=== PATIENT | female | born 1990 | race Caucasian/White ===

== ENCOUNTER 2016-11-04 13:00 | Emergency (ER) | payer OTHER ==
[~2016-11-04] VITALS: Ht 162.6 cm; Wt 89.1 kg
[2016-11-04 13:29] VITALS: BP 137/68
== END 2016-11-04 15:22 | disposition home or self-care (01) ==
LOC: M ED 13:00
DX: F43.0 Acute stress reaction (principal); R45.851 Suicidal ideations

== ENCOUNTER → 2018-03-18 | Outpatient (REF) | payer OTHER ==
[2018-03-18 13:32] LABS: HEMATOCRIT 40.2 % (36.0-47.0); HEMOGLOBIN 13.1 g/dl (12.0-15.5); MEAN CORPUSCULAR HEMOGLOBIN 29.4 pg (27.0-33.0); MEAN CORPUSCULAR HGB CONC 32.6 g/dl (32.0-36.5); MEAN CORPUSCULAR VOLUME 90.3 fl (80.0-96.0); PLATELET COUNT, AUTOMATED 334 10^3/uL (150-450); RED BLOOD COUNT 4.45 10^6/uL (4.00-5.40); RED CELL DISTRIBUTION WIDTH 13.1 % (11.5-14.5); WHITE BLOOD COUNT 12.2 10^3/uL (4.0-10.0)
[2018-03-18 13:45] LABS: ALBUMIN 3.6 GM/DL (3.2-5.2); ALBUMIN/GLOBULIN RATIO 0.97 (1.00-1.93); ALKALINE PHOSPHATASE 78 U/L (45-117); ALT/SGPT 30 U/L (12-78); ANION GAP 7 MEQ/L (8-16); AST/SGOT 17 U/L (7-37); BILIRUBIN,TOTAL 0.2 MG/DL (0.2-1.0); BLOOD UREA NITROGEN 14 MG/DL (7-18); CALCIUM LEVEL 8.2 MG/DL (8.5-10.1); CARBON DIOXIDE LEVEL 26 MEQ/L (21-32); CHLORIDE LEVEL 106 MEQ/L (98-107); CHOLESTEROL LEVEL 239 MG/DL (<200); CHOLESTEROL RISK RATIO 5.195 (<5); CREATININE FOR GFR 0.85 MG/DL (0.55-1.30); FREE T4 1.13 NG/DL (0.76-1.46); GLOMERULAR FILTRATION RATE > 60.0 (>60); GLUCOSE, FASTING 91 MG/DL (70-100); HDL CHOLESTEROL 46 MG/DL (>40); LDL CHOLESTEROL 169 MG/DL (<100); NON-HDL-C 193 MG/DL; POTASSIUM SERUM 3.9 MEQ/L (3.5-5.1); SODIUM LEVEL 139 MEQ/L (136-145); TOTAL PROTEIN 7.3 GM/DL (6.4-8.2); TRIGLYCERIDES LEVEL 121 MG/DL (<150)
[2018-03-18 13:57] LABS: RUBELLA IgG QUALITATIVE IMMUNE (IMMUNE)
[2018-03-19 10:12] LABS: RUBEOLA IgG ANTIBODY 45.2 AU/mL (Immune >29.9)
[2018-03-19 11:09] LABS: HEPATITIS C VIRUS ABY INDEX 0.1 INDEX (<0.8); HIV 1&2 SCREEN CENTAUR NEGATIVE (NEGATIVE)
== END ==
LOC: M SFHCPLAZ 10:33
DX: Z01.84 Encounter for antibody response examination (principal); F32.9 Major depressive disorder, single episode, unspecified; Z13.220 Encounter for screening for lipoid disorders; F41.9 Anxiety disorder, unspecified; Z11.59 Encounter for screening for other viral diseases; Z11.4 Encounter for screening for human immunodeficiency virus [HIV]
CPT/HCPCS: 84443

== ENCOUNTER 2021-06-13 12:09 | Emergency (ER) | payer OTHER, SELFPAY ==
[~2021-06-13] VITALS: Ht 162.6 cm; Wt 93.2 kg
[2021-06-13] MEDS ORDERED: KETOROLAC 60MG 2ML VIAL IM ONE (14:10)
[2021-06-13 15:03] VITALS: BP 131/77
== END 2021-06-13 15:09 | disposition home or self-care (01) ==
LOC: M ED 12:09
DX: M54.50 Low back pain, unspecified (principal); F17.210 Nicotine dependence, cigarettes, uncomplicated; F12.20 Cannabis dependence, uncomplicated
CPT/HCPCS: 72110; 96372; 99283; J1885

== ENCOUNTER 2022-01-24 20:32 | Emergency (ER) | payer OTHER ==
[~2022-01-24] VITALS: Ht 162.6 cm; Wt 97.3 kg
[2022-01-24 20:32] VITALS: BP 145/74
== END 2022-01-24 22:46 | disposition left against medical advice (07) ==
LOC: M ED 20:32
DX: Z53.21 Procedure and treatment not carried out due to patient leaving prior to being seen by health care provider (principal)

== ENCOUNTER 2022-01-25 19:13 | Inpatient (IN) | payer MEDICAID, OTHER, SELFPAY ==
[~2022-01-25] VITALS: Ht 162.6 cm; Wt 98.0 kg
[2022-01-25 20:53] LABS: BASO # 0.1 10^3/uL (0.0-0.2); BASO % 0.4 % (0.0-1.0); EOS # 0.2 10^3/uL (0.0-0.5); EOS % 1.9 % (0.0-3.0); HEMATOCRIT 42.2 % (36.0-47.0); HEMOGLOBIN 13.6 g/dl (12.0-15.5); LYMPH # 4.4 10^3/uL (1.5-5.0); MEAN CORPUSCULAR HEMOGLOBIN 29.5 pg (27.0-33.0); MEAN CORPUSCULAR HGB CONC 32.2 g/dl (32.0-36.5); MEAN CORPUSCULAR VOLUME 91.5 fl (80.0-96.0); MONO # 0.7 10^3/uL (0.0-0.8); NEUTROPHILS # 5.9 10^3/uL (1.5-8.5); NEUTROPHILS % 52.3 % (36.0-66.0); PLATELET COUNT, AUTOMATED 322 10^3/uL (150-450); RED BLOOD COUNT 4.61 10^6/uL (4.00-5.40); WHITE BLOOD COUNT 11.3 10^3/uL (4.0-10.0)
[2022-01-25] MEDS ORDERED: ISOVUE-370 76% 100ML VIAL As Ordered ONE (20:55)
[2022-01-25 21:29] LABS: ERYTHROCYTE SEDIMENTATION RATE 17 mm/hr (0-20)
[2022-01-25 21:31] LABS: ALBUMIN 3.6 GM/DL (3.2-5.2); ALT/SGPT 42 U/L (12-78); BILIRUBIN,DIRECT < 0.1 MG/DL (0.0-0.2); BILIRUBIN,TOTAL 0.2 MG/DL (0.2-1.0); TOTAL PROTEIN 7.5 GM/DL (6.4-8.2)
[2022-01-25] MEDS ORDERED: GLUCAGON INJ 1MG VIAL IV STA (22:20)
[2022-01-25] MEDS ORDERED: HOME MED LIST COMPLETE! XX SCH (22:35)
[2022-01-26] MEDS ORDERED: GLUCOSE 4GM CHEW TABLET PO PRN (00:05)
[2022-01-26] MEDS ORDERED: DEXTROSE 50% 50 ML SYRINGE IV PRN (00:05)
[2022-01-26] MEDS ORDERED: GLUCAGON INJ 1MG VIAL SC PRN (00:05)
[2022-01-26] MEDS: NS 1,000 ML IV SCH ×2 (01:23→02:29)
[2022-01-26 02:04] VITALS: BP 145/80
[2022-01-26 07:50] LABS: MEAN CORPUSCULAR HEMOGLOBIN 29.5 pg (27.0-33.0); MEAN CORPUSCULAR HGB CONC 32.5 g/dl (32.0-36.5); MEAN CORPUSCULAR VOLUME 90.9 fl (80.0-96.0); PLATELET COUNT, AUTOMATED 299 10^3/uL (150-450); WHITE BLOOD COUNT 10.6 10^3/uL (4.0-10.0)
[2022-01-26 08:00] VITALS: BP 138/74
[2022-01-26 08:03] LABS: INR 0.93; PROTHROMBIN TIME 12.7 SECONDS (12.5-14.5)
[2022-01-26 08:04] LABS: PARTIAL THROMBOPLASTIN TIME 29.6 SECONDS (24.8-34.2)
[2022-01-26 08:14] LABS: BLOOD UREA NITROGEN 11 MG/DL (7-18); CALCIUM LEVEL 8.6 MG/DL (8.5-10.1); CARBON DIOXIDE LEVEL 28 MEQ/L (21-32); CHLORIDE LEVEL 104 MEQ/L (98-107); CREATININE FOR GFR 0.76 MG/DL (0.55-1.30); GLOMERULAR FILTRATION RATE > 60.0 (>60); GLUCOSE, FASTING 95 MG/DL (70-100); SODIUM LEVEL 136 MEQ/L (136-145)
[2022-01-26] MEDS ORDERED: ONDANSETRON 4MG 2ML VIAL IV PRN (08:45)
[2022-01-26] MEDS ORDERED: METOCLOPRAMIDE INJ 10MG/2ML VIAL (J2765 PER 1) IV SCH (09:00)
[2022-01-26] MEDS ORDERED: LEXA1TAB PO (11:56)
[2022-01-26] MEDS ORDERED: XANA0.5T PO (11:56)
[2022-01-26] MEDS ORDERED: REGL5TAB2 PO ×2 (11:56)
[2022-01-26] MEDS ORDERED: SUCR1SS PO (11:56)
[2022-01-26] MEDS ORDERED: SUCR1TA PO (13:21)
== END 2022-01-26 13:05 | disposition home or self-care (01) | DRG 243 ==
LOC: M ED 19:13 → M ED INP 01-26 00:04 → M PED 01-26 01:56
PROVIDERS: ADMIT Internal Medicine; ATTEND Internal Medicine
DX: K21.9 Gastro-esophageal reflux disease without esophagitis (principal); F17.210 Nicotine dependence, cigarettes, uncomplicated; Z20.822 Contact with and (suspected) exposure to COVID-19; F41.1 Generalized anxiety disorder; F41.0 Panic disorder [episodic paroxysmal anxiety]

== ENCOUNTER → 2022-03-23 | Outpatient (CLI) | payer MEDICAID, OTHER ==
[~2022-03-23] MED LIST: LEXA1TAB PO; REGL5TAB2 PO; SUCR1SS PO; SUCR1TA PO; XANA0.5T PO
== END ==
LOC: M LABSMTC 11:37
PROVIDERS: ATTEND Anesthesiology
DX: Z01.812 Encounter for preprocedural laboratory examination (principal); Z11.52 Encounter for screening for COVID-19

== ENCOUNTER 2022-03-28 07:40 | Day surgery (SDC) | payer OTHER ==
[~2022-03-28] VITALS: Ht 162.6 cm; Wt 96.1 kg
[~2022-03-28 07:40] MED LIST changes: +NS 1,000 ML IV ONE
[2022-03-28] MEDS ORDERED: LIDOCAINE 2% 100MG/5ML SDV (FOR ANES.) As Ordered ONE (07:51)
[2022-03-28] MEDS ORDERED: propofoL 200 MG/20 ML VIAL As Ordered ONE ×2 (07:51→08:29)
[2022-03-28] MEDS ORDERED: fentaNYL 100 MCG/2 ML INJECTION As Ordered ONE (08:17)
[2022-03-28 08:48] VITALS: BP 143/82
== END 2022-03-28 09:40 | disposition home or self-care (01) ==
LOC: M OPP 07:40
PROVIDERS: ATTEND Surgery
DX: B96.81 Helicobacter pylori [H. pylori] as the cause of diseases classified elsewhere (principal); K21.9 Gastro-esophageal reflux disease without esophagitis; F32.9 Major depressive disorder, single episode, unspecified; F41.9 Anxiety disorder, unspecified
CPT/HCPCS: 43239; 88305; J3010

== ENCOUNTER 2022-11-15 06:13 | Emergency (ER) | payer OTHER ==
[~2022-11-15] VITALS: Ht 162.6 cm; Wt 87.6 kg
[2022-11-15 06:13] VITALS: BP 169/81; TEMP 98; O2SAT 99
[~2022-11-15 06:13] MED LIST changes: -NS 1,000 ML IV ONE
== END 2022-11-15 08:45 | disposition home or self-care (01) ==
LOC: M ED 08:03
DX: H61.22 Impacted cerumen, left ear (principal); F41.9 Anxiety disorder, unspecified; F32.A Depression, unspecified; Z87.891 Personal history of nicotine dependence

== ENCOUNTER 2023-05-18 20:14 | Emergency (ER) | payer OTHER ==
[2023-05-19 03:08] LABS: HEMATOCRIT 41.7 % (36.0-47.0); HEMOGLOBIN 13.6 g/dl (12.0-15.5); MEAN CORPUSCULAR HEMOGLOBIN 26.9 pg (27.0-33.0); MEAN CORPUSCULAR HGB CONC 32.6 g/dl (32.0-36.5); MEAN CORPUSCULAR VOLUME 82.4 fl (80.0-96.0); PLATELET COUNT, AUTOMATED 332 10^3/uL (150-450); RED BLOOD COUNT 5.06 10^6/uL (4.00-5.40); WHITE BLOOD COUNT 11.7 10^3/uL (4.0-10.0)
[2023-05-19 03:30] LABS: BLOOD UREA NITROGEN 7 MG/DL (9-23); CALCIUM LEVEL 8.9 MG/DL (8.5-10.1); CARBON DIOXIDE LEVEL 24 MMOL/L (20-31); CHLORIDE LEVEL 102 MMOL/L (98-107); CREATININE FOR GFR 0.52 MG/DL (0.55-1.30); GLOMERULAR FILTRATION RATE > 60.0 (>60); GLUCOSE, FASTING 159 MG/DL (60-100); POTASSIUM SERUM 4.2 MMOL/L (3.5-5.1); SODIUM LEVEL 134 MMOL/L (136-145)
[2023-05-19 03:32] LABS: FREE T4 1.74 NG/DL (0.89-1.76)
[2023-05-19 03:33] LABS: THYROID STIMULATING HORMONE 0.008 uIU/ML (0.55-4.78)
[2023-05-19 03:40] LABS: HCG, SERUM QUALITATIVE NEGATIVE (NEGATIVE)
[2023-05-19] MEDS ORDERED: ISOVUE-370 76% 100ML VIAL As Ordered ONE (03:41)
[2023-05-19 04:18] LABS: ATYPICAL LYMPH 12 % (0-5); LYMPHOCYTES 35 % (16-44); MONOCYTES 6 % (0-5); NEUTROPHILS 47 % (28-66)
[2023-05-19 04:19] LABS: PLATELET ESTIMATE NORMAL (NORMAL)
[2023-05-19 05:00] VITALS: BP 144/72; TEMP 98; O2SAT 93
[2023-05-19] MEDS ORDERED: CEPH500C PO (06:13)
[2023-05-19] MEDS: CEPHALEXIN 500 MG CAP PO ONE (06:26)
== END 2023-05-19 06:38 | disposition home or self-care (01) ==
LOC: M ED 05-19 00:55
DX: J03.90 Acute tonsillitis, unspecified (principal)
CPT/HCPCS: 70491; 72125; 80048; 84439; 84443; 84702; 84703; 85025; 99284; Q9967

== ENCOUNTER → 2023-09-03 | Outpatient (CLI) | payer OTHER ==
[~2023-09-03] MED LIST changes: +CEPH500C PO
== END ==
LOC: M RAD 14:01
PROVIDERS: ATTEND Otolaryngology
DX: E04.0 Nontoxic diffuse goiter (principal)

== ENCOUNTER → 2023-09-14 | Outpatient (CLI) | payer OTHER ==
[2023-09-14 18:28] LABS: FREE T4 1.02 NG/DL (0.89-1.76); THYROID STIMULATING HORMONE 0.029 uIU/ML (0.55-4.78)
[2023-09-14 18:31] LABS: TOTAL T3 124.4 NG/DL (60.0-181.0)
== END ==
LOC: M LAB 17:32
PROVIDERS: ATTEND Otolaryngology
DX: E04.0 Nontoxic diffuse goiter (principal)

== ENCOUNTER 2025-02-24 03:37 | Emergency (ER) | payer OTHER ==
[~2025-02-24] VITALS: Ht 162.6 cm; Wt 89.9 kg
[~2025-02-24 03:37] MED LIST changes: +HYDR-643 PO
[2025-02-24 05:48] VITALS: TEMP 98
[2025-02-24] MEDS: PANTOPRAZOLE 40MG VIAL IV ONE (07:55)
[2025-02-24] MEDS: KETOROLAC 30 MG/ML 1 ML VIAL IV ONE (07:55)
[2025-02-24] MEDS: ONDANSETRON 4MG/2ML VIAL IV ONE (07:55)
[2025-02-24 08:02] LABS: BASO # 0.1 10^3/uL (0.0-0.2); BASO % 0.4 % (0.0-1.0); EOS # 0.1 10^3/uL (0.0-0.5); EOS % 0.9 % (0.0-3.0); LYMPH # 2.8 10^3/uL (1.5-5.0); LYMPH % 19.6 % (24.0-44.0); MONO # 0.7 10^3/uL (0.0-0.8); MONO % 5.1 % (2.0-8.0); NEUTROPHILS # 10.6 10^3/uL (1.5-8.5); NEUTROPHILS % 73.4 % (36.0-66.0); PLATELET COUNT, AUTOMATED 283 10^3/uL (150-450)
[2025-02-24 08:31] LABS: HCG, SERUM QUALITATIVE NEGATIVE (NEGATIVE)
[2025-02-24 08:56] LABS: ALT/SGPT 49 U/L (7.0-40); AST/SGOT 52 U/L (<34); CALCIUM LEVEL 8.6 MG/DL (8.5-10.1); CARBON DIOXIDE LEVEL 23 MMOL/L (20-31); CHLORIDE LEVEL 93 MMOL/L (98-107); CK-MB VALUE MASS < 1.0 NG/ML (<3.6); CPK CREATINE PHOSPHOKINASE 110 U/L (34-145); CREATININE FOR GFR 0.36 MG/DL (0.55-1.30); GLOMERULAR FILTRATION RATE > 90.0 (>60); POTASSIUM SERUM 4.6 MMOL/L (3.5-5.1); SODIUM LEVEL 128 MMOL/L (136-145)
[2025-02-24] MEDS: NS (Normal Saline) 0.9% 1,000 ML IV ONE (09:04)
[2025-02-24] MEDS ORDERED: ISOVUE-370 76% 100 ML VIAL As Ordered ONE (09:17)
[2025-02-24] MEDS ORDERED: HOME MED LIST COMPLETE! XX SCH (09:55)
[2025-02-24 11:10] VITALS: BP 129/74; O2SAT 91
[2025-02-24] MEDS ORDERED: ELIQ5TAB4 PO (11:30)
== END 2025-02-24 11:48 | disposition home or self-care (01) ==
LOC: M ED 03:37
DX: K85.90 Acute pancreatitis without necrosis or infection, unspecified (principal); I82.890 Acute embolism and thrombosis of other specified veins; E11.9 Type 2 diabetes mellitus without complications; K76.0 Fatty (change of) liver, not elsewhere classified
CPT/HCPCS: 74177; 80053; 82550; 82553; 83605; 83690; 84484; 84703; 85025; 96374; 96375; 99284; J1885; J2405; J2470; Q9967

== ENCOUNTER → 2025-03-08 | Outpatient (POV) | payer OTHER ==
[~2025-03-08] MED LIST changes: +ELIQ5TAB4 PO
== END ==
LOC: M IRPOV 13:15
PROVIDERS: ATTEND Radiology Diagnostic Radiology
DX: I82.891 Chronic embolism and thrombosis of other specified veins (principal); F17.210 Nicotine dependence, cigarettes, uncomplicated; Z79.01 Long term (current) use of anticoagulants; Z81.8 Family history of other mental and behavioral disorders; Z82.49 Family history of ischemic heart disease and other diseases of the circulatory system; Z83.3 Family history of diabetes mellitus